=== PATIENT | male | born 1995 | race Caucasian/White ===

== ENCOUNTER 2018-11-09 12:56 | Emergency (ER) | payer MEDICAID, OTHER ==
[2018-11-09] MEDS: ACETAMINOPHEN 325 MG TAB PO (13:25)
[2018-11-09] MEDS: LIDOCAINE 1% (MDV) 20 ML INJ SC (13:25)
== END 2018-11-09 14:32 | disposition home or self-care (01) ==
LOC: FTE 12:56
DX: L60.0 Ingrowing nail (principal)
CPT/HCPCS: 11750; 99283-25